=== PATIENT | female | born 1960 | race Caucasian/White ===

== ENCOUNTER 2017-07-09 17:56 | Inpatient (IN) | payer MEDICAID ==
[~2017-07-09] VITALS: Ht 167.6 cm; Wt 54.0 kg
[2017-07-09] MEDS ORDERED: NITROGLYCERIN 0.4MG/HR TOPICAL PATCH TD ONE (19:45)
[2017-07-09] MEDS ORDERED: ENALAPRILAT 1.25 MG/ML-1ML VIAL IV ONE (19:45)
[2017-07-09 20:21] LABS: Basophils # (auto) 0 uL; Basophils % (auto) 0.7 % (0.0-2.0); Eosinophils # (auto) 0 uL; Eosinophils % (auto) 0.7 % (0.0-7.0); Hematocrit 41.9 % (36.0-46.0); Hemoglobin 14.3 g/dL (12.2-16.2); Lymphocytes # (auto) 1.3 uL; Lymphocytes % (auto) 19.6 % (10.0-50.0); Mean Corpuscular Hgb Conc. 34.2 g/dL (32.0-36.0); Mean Corpuscular Volume 87.6 fL (80.0-100.0); Mean Platelet Volume 8.4 fL (6.9-10.8); Monocytes # (auto) 0.5 uL; Monocytes % (auto) 6.9 % (0.0-12.0); Neutrophils # (auto) 4.8 uL; Neutrophils % (auto) 72.1 % (37.0-80.0); Nucleated Red Blood Cells % 0.1 %; Platelet Count (auto) 396 10^3/uL (140-450); Red Cell Distribution Width 12.8 % (11.8-14.3); White Blood Cell 6.7 10^3/uL (4.4-10.8)
[2017-07-09 20:32] LABS: INR 0.96 (0.9-1.15); Partial Thromboplastin Time 30.7 sec (22.64-33.71); Prothrombin Time 10.5 sec (9.37-12.3)
[2017-07-09 21:06] LABS: B-Type Natriuretic Peptide 17.57 pg/mL (0-100)
[2017-07-09 21:07] LABS: Temperature: 22.2 C (20.0-25.0)
[2017-07-09 21:10] LABS: Albumin 3.7 g/dL (3.4-5.0); Alkaline Phosphatase 233 U/L (45-117); Anion Gap 8 (5-15); Aspartate Aminotransferase 43 U/L (15-37); BUN/Creatinine Ratio 10.3; Bilirubin, Total 0.5 mg/dL (0.2-1.0); Blood Urea Nitrogen 8 mg/dL (7-18); Calcium 9.7 mg/dL (8.5-10.1); Carbon Dioxide 25 mmol/L (21-32); Chloride 103 mmol/L (98-107); GFR African American 98 mL/min; GFR Non-African American 81 mL/min; Glucose 102 mg/dL (74-106); Potassium 3.7 mmol/L (3.5-5.1); Sodium 136 mmol/L (136-145); Total Protein 9.1 g/dL (6.4-8.2)
[2017-07-09] MEDS ORDERED: HYDROcodone-ACET 5/325MG TAB ONE (23:19)
[2017-07-09] MEDS ORDERED: cloNIDine HCL 0.1 MG TAB ONE (23:29)
[2017-07-09] MEDS ORDERED: HYDROcodone-ACET 5/325MG TAB PO ONE (23:30)
[2017-07-09] MEDS ORDERED: cloNIDine HCL 0.1 MG TAB PO ONE (23:45)
[2017-07-10] VITALS (7 sets, daily range): BP systolic 128–153; BP diastolic 71–96
[2017-07-10] MEDS ORDERED: HYDROcodone-ACET 5/325MG TAB PO PRN (01:45)
[2017-07-10] MEDS ORDERED: ONDANSETRON HCL 4 MG/2 ML VIAL IV PRN (01:45)
[2017-07-10] MEDS ORDERED: ACETAMINOPHEN 500 MG TAB PO PRN (01:45)
[2017-07-10 08:29] LABS: Basophils # (auto) 0.1 uL; Basophils % (auto) 0.8 % (0.0-2.0); Eosinophils # (auto) 0 uL; Hematocrit 38.5 % (36.0-46.0); Hemoglobin 13.2 g/dL (12.2-16.2); Lymphocytes # (auto) 1.1 uL; Lymphocytes % (auto) 15.7 % (10.0-50.0); Mean Corpuscular Hgb Conc. 34.2 g/dL (32.0-36.0); Mean Corpuscular Volume 87.8 fL (80.0-100.0); Mean Platelet Volume 7.8 fL (6.9-10.8); Monocytes # (auto) 0.2 uL; Monocytes % (auto) 3.1 % (0.0-12.0); Neutrophils # (auto) 5.9 uL; Neutrophils % (auto) 80.4 % (37.0-80.0); Nucleated Red Blood Cells % 0.1 %; Platelet Count (auto) 357 10^3/uL (140-450); Red Cell Distribution Width 12.9 % (11.8-14.3); White Blood Cell 7.3 10^3/uL (4.4-10.8)
[2017-07-10 08:40] LABS: BUN/Creatinine Ratio 8.8; Calcium 9.6 mg/dL (8.5-10.1); Potassium 3.9 mmol/L (3.5-5.1)
[2017-07-10] MEDS: MORPHINE SULF INJ 2 MG/ML SYRINGE 1ML IV PRN (08:43)
[2017-07-10] MEDS: amLODIPine BESYLATE 5 MG TAB PO SCH (10:23)
[2017-07-10] MEDS ORDERED: IOHEXOL 300 MG/ML 100ML BOTTLE IJ ONE (11:59)
[2017-07-10] MEDS ORDERED: TEMAZEPAM 15 MG CAP PO PRN (18:30)
[2017-07-11 05:05] VITALS: BP 115/74
[2017-07-11 08:00] VITALS: BP 140/94
[2017-07-11 09:00] VITALS: BP 140/94
[2017-07-11] MEDS: MORPHINE SULF INJ 2 MG/ML SYRINGE 1ML IV PRN (09:06)
[2017-07-11] MEDS: amLODIPine BESYLATE 5 MG TAB PO SCH (10:44)
[2017-07-11 13:00] VITALS: BP 135/91
[2017-07-11] MEDS ORDERED: FLUMAZENIL 0.1 MG/ML INJ 10ML MDV IV ONE (13:02)
[2017-07-11] MEDS ORDERED: MIDAZOLAM HCL 1MG/1ML-2 ML VIAL ONE (13:02)
[2017-07-11] MEDS ORDERED: NALOXONE HCL 0.4 MG/ML VIAL ONE (13:02)
[2017-07-11] MEDS ORDERED: fentaNYL CITRATE 100 MCG/2 ML VL ONE ×2 (13:02→16:20)
[2017-07-11] MEDS ORDERED: LIDOCAINE 2%HCL (LOCAL ANESTH.) INJ 20ML MDV ONE (13:24)
[2017-07-11] MEDS ORDERED: ceFAZolin 1GM/50ML 50 ML IV ONE (16:04)
[2017-07-11] MEDS ORDERED: LIDOCAINE W/ EPINEPHRINE 1% 20ML VIAL ONE (16:05)
[2017-07-11] MEDS ORDERED: PROPOFOL 10 MG/ML 20 ML IV ONE (16:20)
[2017-07-11] MEDS ORDERED: SUCCINYLCHOLINE CHLORIDE 20 MG/ML 10ML VIAL IV ONE (16:23)
[2017-07-11] MEDS ORDERED: LIDOCAINE HCL 2 %PF INJ 10ML AMP IJ ONE (16:29)
[2017-07-11] MEDS ORDERED: ONDANSETRON HCL 4 MG/2 ML VIAL IV ONE (16:30)
[2017-07-11] MEDS ORDERED: HYDROmorphone HCL 2 MG/ML VL IV PRN (16:30)
[2017-07-11] MEDS ORDERED: NALOXONE HCL 0.4 MG/ML VIAL IV PRN (16:30)
[2017-07-11] MEDS ORDERED: PHENYLEPHRINE HCL 10 MG/ML VL ONE (16:35)
[2017-07-11] MEDS ORDERED: ONDANSETRON HCL 4 MG/2 ML VIAL ONE (16:49)
[2017-07-11] MEDS ORDERED: METOCLOPRAMIDE HCL 5MG/ml INJ 2ml VIAL ONE (16:49)
[2017-07-11 22:00] VITALS: BP 135/86
[2017-07-12 05:29] VITALS: BP 126/82
[2017-07-12] MEDS ORDERED: IOHEXOL 300 MG/ML 100ML BOTTLE IJ ONE (08:04)
[2017-07-12 08:47] VITALS: BP 134/86
[2017-07-12 09:40] VITALS: BP 134/86
[2017-07-12] MEDS: amLODIPine BESYLATE 5 MG TAB PO SCH (10:00)
[2017-07-12] MEDS ORDERED: KETOROLAC TROMETH 30 MG/ML 1ML VIAL IM PRN (10:30)
[2017-07-12] MEDS ORDERED: MILK OF MAGNESIA 30ML SUSP PO ONE (10:30)
[2017-07-12] MEDS ORDERED: KETOROLAC TROMETH 30 MG/ML 1ML VIAL IV ONE (10:45)
[2017-07-12] MEDS ORDERED: KETOROLAC TROMETH 60MG/2ML VIAL IM ONE (10:45)
[2017-07-12] MEDS ORDERED: KETOROLAC TROMETH 30 MG/ML 1ML VIAL IM ONE (11:00)
[2017-07-12] MEDS: BOOST PLUS 8 ounce PO SCH ×2 (12:22→18:24)
[2017-07-12 13:00] VITALS: BP 136/86
[2017-07-12 16:49] VITALS: BP 129/91
== END 2017-07-12 20:18 | disposition home or self-care (01) | DRG 382 ==
LOC: ER 18:06 → OVERFLOW 18:07 → WEST WING 07-10 04:40 → CENTRAL 07-10 18:31
PROVIDERS: ADMIT Nurse Practitioner Family; ATTEND Family Medicine
PROC: 0HBV3ZX Excision of Bilateral Breast, Percutaneous Approach, Diagnostic (ICD-10-PCS; 2017-07-11)
PROC: 0FB03ZX Excision of Liver, Percutaneous Approach, Diagnostic (ICD-10-PCS; principal; 2017-07-11 16:25)
DX: C50.912 Malignant neoplasm of unspecified site of left female breast (principal); E43 Unspecified severe protein-calorie malnutrition; J90 Pleural effusion, not elsewhere classified; C78.7 Secondary malignant neoplasm of liver and intrahepatic bile duct; C50.911 Malignant neoplasm of unspecified site of right female breast; C79.51 Secondary malignant neoplasm of bone; I10 Essential (primary) hypertension; Z68.1 Body mass index [BMI] 19.9 or less, adult; Z88.2 Allergy status to sulfonamides; Z82.49 Family history of ischemic heart disease and other diseases of the circulatory system; Z83.3 Family history of diabetes mellitus
CPT/HCPCS: 36415; 70460; 70491; 71020; 71250; 74178; 76705; 76942; 78315; 80048; 80053; 82105; 82378; 83880; 84443; 84484; 85025; 85610; 85730; 86300; 86703; 88341; 93005; 94761; 96374; J0330; J0690; J1885; J2250; J2405; J2704

== ENCOUNTER 2017-10-14 04:20 | Inpatient (IN) | payer MEDICAID ==
[~2017-10-14] VITALS: Ht 167.6 cm; Wt 70.1 kg
[2017-10-14 07:03] LABS: Basophils # (auto) 0.1 uL; Eosinophils # (auto) 0 uL; Eosinophils % (auto) 0.1 % (0.0-7.0); Hematocrit 34.6 % (36.0-46.0); Hemoglobin 11.7 g/dL (12.2-16.2); Lymphocytes % (auto) 10.2 % (10.0-50.0); Mean Corpuscular Hemoglobin 29.4 pg (28.0-32.0); Mean Corpuscular Hgb Conc. 33.7 g/dL (32.0-36.0); Mean Corpuscular Volume 87.3 fL (80.0-100.0); Monocytes # (auto) 0.4 uL; Monocytes % (auto) 4.3 % (0.0-12.0); Neutrophils # (auto) 7.9 uL; Neutrophils % (auto) 84.4 % (37.0-80.0); Platelet Count (auto) 287 10^3/uL (140-450); Red Blood Cells 3.96 10^6/uL (4.0-5.20); Red Cell Distribution Width 16.3 % (11.8-14.3); White Blood Cell 9.4 10^3/uL (4.4-10.8)
[2017-10-14 07:15] LABS: Alanine Aminotransferase 26 U/L (13-56); Albumin 2.8 g/dL (3.4-5.0); Anion Gap 12 (5-15); Aspartate Aminotransferase 63 U/L (15-37); BUN/Creatinine Ratio 35.3; Blood Urea Nitrogen 12 mg/dL (7-18); Calcium 9.6 mg/dL (8.5-10.1); Carbon Dioxide 25 mmol/L (21-32); Chloride 95 mmol/L (98-107); GFR African American 256 mL/min; GFR Non-African American 212 mL/min; Glucose 94 mg/dL (74-106); Magnesium 2.3 mg/dL (1.6-2.6); Potassium 3.6 mmol/L (3.5-5.1); Sodium 132 mmol/L (136-145)
[2017-10-14 07:20] LABS: Alkaline Phosphatase 380 U/L (45-117); Bilirubin, Total 0.9 mg/dL (0.2-1.0); Total Protein 6.9 g/dL (6.4-8.2)
[2017-10-14] MEDS ORDERED: ONDANSETRON HCL 4 MG/2 ML VIAL IV ONE (08:00)
[2017-10-14] MEDS ORDERED: MORPHINE SULFATE 10 MG/ML INJ 1ML SDV IV ONE (08:00)
[2017-10-14] MEDS ORDERED: cloNIDine HCL 0.1 MG TAB PO ONE (08:00)
[2017-10-14] MEDS ORDERED: IPRATROPIUM BROM 0.5 MG/2.5ML INH SOL NEB ONE (08:45)
[2017-10-14] MEDS ORDERED: ALBUTEROL SULF 2.5 MG/0.5ML(0.5%) NEB SOLN NEB ONE (08:45)
[2017-10-14] MEDS ORDERED: AZITHROMYCIN 500MG/ 250ML 250 ML IV ONE (09:00)
[2017-10-14] MEDS ORDERED: cefTRIAXone 1GM/10ml IVPUSH 10 ML IV ONE (09:00)
[2017-10-14] MEDS ORDERED: NITROGLYCERIN 0.4 MG SL TAB SL PRN (09:45)
[2017-10-14] MEDS ORDERED: TEMAZEPAM 15 MG CAP PO PRN (09:45)
[2017-10-14] MEDS ORDERED: DOCUSATE SOD 100 MG CAP PO PRN (09:45)
[2017-10-14] MEDS ORDERED: MORPHINE SULFATE 10 MG/ML INJ 1ML SDV IV PRN (09:45)
[2017-10-14] MEDS ORDERED: ONDANSETRON HCL 4 MG/2 ML VIAL IV PRN (09:45)
[2017-10-14] MEDS: POTASSIUM CHL 10 Meq TABLET PO SCH (10:56)
[2017-10-14] MEDS: MULTIPLE VITAMIN TAB PO SCH (10:56)
[2017-10-14] MEDS: MORPHINE SULF 15mg ER tab PO SCH ×3 (10:57→22:13)
[2017-10-14] MEDS: ENOXAPARIN SOD 40 MG/0.4 ML SYRINGE SC SCH (10:57)
[2017-10-14] MEDS: PANTOPRAZOLE 40 MG TAB PO SCH (10:57)
[2017-10-14] MEDS: BOOST PLUS 8 ounce PO SCH ×2 (12:00→18:00)
[2017-10-14 14:14] VITALS: BP 97/59
[2017-10-14 14:36] LABS: Lactic Acid w/Reflex 3.1 mmol/L (0.4-2.0)
[2017-10-14] MEDS: SODIUM CHLOR 0.9% PF (SALINE LOCK) 10ML VIAL IV SCH ×2 (15:05→22:12)
[2017-10-14 16:51] LABS: Lactic Acid w/Reflex 2.4 mmol/L (0.4-2.0)
[2017-10-14 17:00] VITALS: BP 103/59
[2017-10-14] MEDS: MORPHINE SULFATE 10 MG/ML INJ 1ML SDV IV PRN (17:08)
[2017-10-14] MEDS: ALBUTEROL SULF 2.5 MG/0.5ML(0.5%) NEB SOLN NEB SCH (18:47)
[2017-10-14] MEDS: IPRATROPIUM BROM 0.5 MG/2.5ML INH SOL NEB SCH (18:47)
[2017-10-14 21:30] VITALS: BP 102/60
[2017-10-15] MEDS: ALBUTEROL SULF 2.5 MG/0.5ML(0.5%) NEB SOLN NEB SCH ×5 (00:41→19:24)
[2017-10-15] MEDS: IPRATROPIUM BROM 0.5 MG/2.5ML INH SOL NEB SCH ×5 (00:41→19:24)
[2017-10-15 05:00] VITALS: BP 136/72
[2017-10-15 06:10] LABS: Urine Bacteria NONE SEEN /hpf (None Seen); Urine Blood Negative /uL (Negative); Urine Budding Yeast FEW /hpf (None Seen); Urine Specific Gravity 1.021 (1.001-1.035); Urine WBC 6 /hpf (0 - 5)
[2017-10-15] MEDS: SODIUM CHLOR 0.9% PF (SALINE LOCK) 10ML VIAL IV SCH ×3 (06:17→22:00)
[2017-10-15 07:20] LABS: Basophils # (auto) 0 uL; Basophils % (auto) 0.4 % (0.0-2.0); Eosinophils # (auto) 0 uL; Eosinophils % (auto) 0.2 % (0.0-7.0); Hematocrit 32.2 % (36.0-46.0); Hemoglobin 10.5 g/dL (12.2-16.2); Lymphocytes # (auto) 0.6 uL; Lymphocytes % (auto) 8.5 % (10.0-50.0); Mean Corpuscular Hgb Conc. 32.7 g/dL (32.0-36.0); Mean Corpuscular Volume 88.6 fL (80.0-100.0); Monocytes # (auto) 0.6 uL; Monocytes % (auto) 7.7 % (0.0-12.0); Neutrophils # (auto) 6.3 uL; Neutrophils % (auto) 83.2 % (37.0-80.0); Nucleated Red Blood Cells % 0.1 %; Platelet Count (auto) 297 10^3/uL (140-450); Red Blood Cells 3.63 10^6/uL (4.0-5.20); White Blood Cell 7.6 10^3/uL (4.4-10.8)
[2017-10-15 07:32] LABS: Albumin 2.6 g/dL (3.4-5.0); BUN/Creatinine Ratio 22.7; Bilirubin, Total 0.6 mg/dL (0.2-1.0); Calcium 9.4 mg/dL (8.5-10.1); Potassium 4.1 mmol/L (3.5-5.1); Total Protein 6.5 g/dL (6.4-8.2)
[2017-10-15 08:00] VITALS: BP 124/78
[2017-10-15] MEDS: BOOST PLUS 8 ounce PO SCH ×2 (08:34→11:59)
[2017-10-15 09:00] VITALS: BP 124/78
[2017-10-15] MEDS: ENOXAPARIN SOD 40 MG/0.4 ML SYRINGE SC SCH (09:54)
[2017-10-15] MEDS: POTASSIUM CHL 10 Meq TABLET PO SCH (09:55)
[2017-10-15] MEDS: MULTIPLE VITAMIN TAB PO SCH (09:55)
[2017-10-15] MEDS: PANTOPRAZOLE 40 MG TAB PO SCH (09:55)
[2017-10-15] MEDS: MORPHINE SULF 15mg ER tab PO SCH ×2 (10:00→17:49)
[2017-10-15] MEDS: cefTRIAXone 1GM/10ml IVPUSH 10 ML IV SCH (10:26)
[2017-10-15] MEDS: AZITHROMYCIN 500MG/ 250ML 250 ML IV SCH (10:26)
[2017-10-15 13:00] VITALS: BP 134/81
[2017-10-15] MEDS ORDERED: MORP60TA25 PO (15:29)
[2017-10-15] MEDS ORDERED: POTA20TA53 PO (15:29)
[2017-10-15] MEDS ORDERED: PRO10T PO (15:29)
[2017-10-15] MEDS ORDERED: DOCU100T15 PO (15:29)
[2017-10-15] MEDS ORDERED: PANT40TA2 PO (15:29)
[2017-10-15] MEDS ORDERED: MORP15TA PO (15:29)
[2017-10-15 17:00] VITALS: BP 131/86
[2017-10-15] MEDS: Boost Breeze 8 Ounces PO SCH (19:27)
[2017-10-15] MEDS: PRO-STAT 64 30ML PO SCH (19:27)
[2017-10-15 22:00] VITALS: BP 134/76
[2017-10-15] MEDS: ASCORBIC ACID 500 MG TAB PO SCH (22:05)
[2017-10-15] MEDS: MORPHINE SULFATE 10 MG/ML INJ 1ML SDV IV PRN (22:17)
[2017-10-16] MEDS: IPRATROPIUM BROM 0.5 MG/2.5ML INH SOL NEB SCH ×4 (00:55→12:00)
[2017-10-16] MEDS: ALBUTEROL SULF 2.5 MG/0.5ML(0.5%) NEB SOLN NEB SCH ×4 (00:56→12:00)
[2017-10-16 05:00] VITALS: BP 133/78
[2017-10-16] MEDS: MORPHINE SULFATE 10 MG/ML INJ 1ML SDV IV PRN ×2 (05:05→14:00)
[2017-10-16] MEDS: SODIUM CHLOR 0.9% PF (SALINE LOCK) 10ML VIAL IV SCH ×2 (05:24→12:20)
[2017-10-16 08:00] VITALS: BP 144/90
[2017-10-16] MEDS: Boost Breeze 8 Ounces PO SCH ×2 (08:02→11:31)
[2017-10-16] MEDS: PRO-STAT 64 30ML PO SCH (08:02)
[2017-10-16 08:16] LABS: Basophils # (auto) 0.1 uL; Basophils % (auto) 0.7 % (0.0-2.0); Eosinophils # (auto) 0 uL; Eosinophils % (auto) 0.1 % (0.0-7.0); Hemoglobin 10.5 g/dL (12.2-16.2); Lymphocytes # (auto) 0.6 uL; Lymphocytes % (auto) 7.2 % (10.0-50.0); Mean Corpuscular Hemoglobin 29.1 pg (28.0-32.0); Mean Corpuscular Volume 88.3 fL (80.0-100.0); Monocytes # (auto) 0.8 uL; Monocytes % (auto) 8.8 % (0.0-12.0); Neutrophils # (auto) 7.1 uL; Neutrophils % (auto) 83.2 % (37.0-80.0); Nucleated Red Blood Cells % 0.1 %; Platelet Count (auto) 324 10^3/uL (140-450); Red Blood Cells 3.62 10^6/uL (4.0-5.20); White Blood Cell 8.6 10^3/uL (4.4-10.8)
[2017-10-16 08:31] LABS: BUN/Creatinine Ratio 23.1; Calcium 9.4 mg/dL (8.5-10.1)
[2017-10-16 09:00] VITALS: BP 144/90
[2017-10-16] MEDS: cefTRIAXone 1GM/10ml IVPUSH 10 ML IV SCH (09:00)
[2017-10-16] MEDS: POTASSIUM CHL 10 Meq TABLET PO SCH (10:01)
[2017-10-16] MEDS: ASCORBIC ACID 500 MG TAB PO SCH (10:02)
[2017-10-16] MEDS: PANTOPRAZOLE 40 MG TAB PO SCH (10:03)
[2017-10-16] MEDS: MULTIPLE VITAMIN TAB PO SCH (10:03)
[2017-10-16] MEDS: MORPHINE SULF 15mg ER tab PO SCH (10:06)
[2017-10-16] MEDS: ENOXAPARIN SOD 40 MG/0.4 ML SYRINGE SC SCH (10:12)
[2017-10-16] MEDS: AZITHROMYCIN 500MG/ 250ML 250 ML IV SCH (11:15)
[2017-10-16 11:36] VITALS: BP 140/89
[2017-10-16 13:00] VITALS: BP 129/90
== END 2017-10-16 15:31 | disposition home or self-care (01) | DRG 720 ==
LOC: ER 04:23 → TELE 04:24 → TELE-WESTW 11:59
PROVIDERS: ADMIT Internal Medicine; ATTEND Internal Medicine
DX: A41.9 Sepsis, unspecified organism (principal); I26.99 Other pulmonary embolism without acute cor pulmonale; L89.154 Pressure ulcer of sacral region, stage 4; J90 Pleural effusion, not elsewhere classified; J18.9 Pneumonia, unspecified organism; C78.7 Secondary malignant neoplasm of liver and intrahepatic bile duct; E44.0 Moderate protein-calorie malnutrition; E88.09 Other disorders of plasma-protein metabolism, not elsewhere classified; J45.901 Unspecified asthma with (acute) exacerbation; E87.1 Hypo-osmolality and hyponatremia; L89.159 Pressure ulcer of sacral region, unspecified stage; R07.89 Other chest pain; R06.03 Acute respiratory distress; I10 Essential (primary) hypertension; C50.919 Malignant neoplasm of unspecified site of unspecified female breast; D63.8 Anemia in other chronic diseases classified elsewhere; Z88.1 Allergy status to other antibiotic agents; Z88.2 Allergy status to sulfonamides; Z88.5 Allergy status to narcotic agent; Z88.8 Allergy status to other drugs, medicaments and biological substances; Z85.3 Personal history of malignant neoplasm of breast; Z68.24 Body mass index [BMI] 24.0-24.9, adult
CPT/HCPCS: 36415; 71045; 71275; 80048; 80053; 81001; 83605; 83735; 83880; 84443; 84484; 85025; 85379; 87040; 87086; 93005; 93306; 93970; 94640; 96365; 96375; 97163; 97530; J2405

== ENCOUNTER 2017-12-08 02:32 | Inpatient (IN) | payer MEDICAID ==
[~2017-12-08] VITALS: Ht 167.6 cm; Wt 49.7 kg
[~2017-12-08 02:32] MED LIST: DOCU100T15 PO; MORP15TA PO; MORP60TA25 PO; PANT40TA2 PO; POTA20TA53 PO; PRO10T PO
[2017-12-08] MEDS ORDERED: ONDANSETRON HCL 4 MG/2 ML VIAL IV ONE (03:15)
[2017-12-08] MEDS ORDERED: MORPHINE SULFATE 4 MG/ML SYR/VIAL IV ONE (03:15)
[2017-12-08] MEDS ORDERED: MORPHINE SULFATE 4 MG/ML SYR/VIAL IV PRN (04:45)
[2017-12-08] MEDS ORDERED: SODIUM CHLORIDE 0.9% 500 ML IV ONE (04:45)
[2017-12-08 05:20] LABS: Basophils # (auto) 0 uL; Eosinophils # (auto) 0 uL; Hematocrit 38.1 % (36.0-46.0); Hemoglobin 12.8 g/dL (12.2-16.2); Lymphocytes # (auto) 0.5 uL; Lymphocytes % (auto) 5.7 % (10.0-50.0); Mean Corpuscular Hemoglobin 29.5 pg (28.0-32.0); Mean Corpuscular Hgb Conc. 33.7 g/dL (32.0-36.0); Mean Corpuscular Volume 87.5 fL (80.0-100.0); Monocytes # (auto) 0.5 uL; Monocytes % (auto) 6.1 % (0.0-12.0); Neutrophils # (auto) 7.9 uL; Neutrophils % (auto) 88.2 % (37.0-80.0); Nucleated Red Blood Cells % 0.2 %; Platelet Count (auto) 262 10^3/uL (140-450); Red Blood Cells 4.35 10^6/uL (4.0-5.20); Red Cell Distribution Width 19.5 % (11.8-14.3)
[2017-12-08 05:39] LABS: Albumin 1.8 g/dL (3.4-5.0); BUN/Creatinine Ratio 38.5; Calcium 8.4 mg/dL (8.5-10.1); Potassium 5.5 mmol/L (3.5-5.1)
[2017-12-08 05:42] LABS: Bilirubin, Total 5.8 mg/dL (0.2-1.0); Total Protein 6.1 g/dL (6.4-8.2)
[2017-12-08] MEDS ORDERED: LORazepam 0.5 MG TAB PO PRN (06:30)
[2017-12-08] MEDS ORDERED: ZOLPIDEM TARTRATE 5 MG TAB PO PRN (06:30)
[2017-12-08] MEDS ORDERED: HYDROcodone-ACET 5/325MG TAB PO PRN (06:30)
[2017-12-08] MEDS ORDERED: ACETAMINOPHEN 500 MG TAB PO PRN (06:30)
[2017-12-08] MEDS ORDERED: ONDANSETRON HCL 4 MG/2 ML VIAL IV PRN (06:30)
[2017-12-08] MEDS ORDERED: traMADol HCL 50 MG TAB PO PRN (07:30)
[2017-12-08] MEDS ORDERED: SODIUM CHLORIDE 0.9% 1,000 ML IV ONE (07:30)
[2017-12-08] MEDS: MORPHINE SULFATE 4 MG/ML SYR/VIAL IV PRN ×3 (08:11→20:56)
[2017-12-08] MEDS ORDERED: OXY5T PO (08:39)
[2017-12-08] MEDS ORDERED: LORA-654 PO (08:39)
[2017-12-08] MEDS ORDERED: HYDR2TAB58 PO (08:39)
[2017-12-08] MEDS ORDERED: FENT75DI2 TD (08:39)
[2017-12-08] MEDS ORDERED: AMIT25TA9 PO (08:39)
[2017-12-08 08:42] VITALS: BP 124/81
[2017-12-08] MEDS: PANTOPRAZOLE 40 MG TAB PO SCH (11:06)
[2017-12-08 12:26] VITALS: BP 121/76
[2017-12-08 17:00] VITALS: BP 117/77
[2017-12-08 20:00] VITALS: BP 131/77
[2017-12-08 21:48] VITALS: BP 131/77
[2017-12-09] VITALS (7 sets, daily range): BP systolic 121–147; BP diastolic 79–91
[2017-12-09] MEDS ORDERED: METOPROLOL TARTRATE 25 MG TAB PO ONE (10:00)
[2017-12-09] MEDS: PANTOPRAZOLE 40 MG TAB PO SCH (10:00)
[2017-12-09] MEDS: MORPHINE SULFATE 4 MG/ML SYR/VIAL IV PRN ×3 (12:00→23:19)
[2017-12-10] MEDS: MORPHINE SULFATE 4 MG/ML SYR/VIAL IV PRN ×3 (00:05→19:52)
[2017-12-10 05:17] VITALS: BP 150/105
[2017-12-10 08:42] VITALS: BP 143/95
[2017-12-10] MEDS: METOPROLOL SUCCINATE XL 50 MG TAB PO SCH (10:47)
[2017-12-10] MEDS: PANTOPRAZOLE 40 MG TAB PO SCH (10:48)
[2017-12-10 13:00] VITALS: BP 149/96
[2017-12-10 17:00] VITALS: BP 143/99
[2017-12-10 20:00] VITALS: BP 153/103
[2017-12-10 22:00] VITALS: BP 153/103
[2017-12-11] MEDS: MORPHINE SULFATE 4 MG/ML SYR/VIAL IV PRN ×3 (02:47→13:17)
[2017-12-11 05:02] VITALS: BP 142/92
[2017-12-11 09:00] VITALS: BP 135/91
[2017-12-11] MEDS: PANTOPRAZOLE 40 MG TAB PO SCH (09:51)
[2017-12-11] MEDS: METOPROLOL SUCCINATE XL 50 MG TAB PO SCH (09:52)
[2017-12-11 13:00] VITALS: BP 140/97
[2017-12-11 13:05] VITALS: BP 140/97
== END 2017-12-11 14:00 | disposition hospice, home (50) | DRG 343 ==
LOC: ER 02:32 → EDBD 02:32 → TELE-EAST 02:33
PROVIDERS: ADMIT Nurse Practitioner Family; ATTEND Internal Medicine
DX: M84.551A Pathological fracture in neoplastic disease, right femur, initial encounter for fracture (principal); C79.51 Secondary malignant neoplasm of bone; E43 Unspecified severe protein-calorie malnutrition; C50.919 Malignant neoplasm of unspecified site of unspecified female breast; E87.1 Hypo-osmolality and hyponatremia; E87.5 Hyperkalemia; G62.9 Polyneuropathy, unspecified; K72.90 Hepatic failure, unspecified without coma; I10 Essential (primary) hypertension; K21.9 Gastro-esophageal reflux disease without esophagitis; R79.89 Other specified abnormal findings of blood chemistry; Z51.5 Encounter for palliative care; Z74.01 Bed confinement status; Z88.2 Allergy status to sulfonamides; Z88.8 Allergy status to other drugs, medicaments and biological substances; Z79.899 Other long term (current) drug therapy; Z82.49 Family history of ischemic heart disease and other diseases of the circulatory system; Z83.3 Family history of diabetes mellitus; Z68.1 Body mass index [BMI] 19.9 or less, adult
CPT/HCPCS: 36415; 73590; 80053; 85025; 87081; 96361; 96374; 96375; 96376; J2405